=== PATIENT | female | born 1945 | race Caucasian/White ===

== ENCOUNTER 2018-06-23 07:29 | Outpatient (CLI) | payer OTHER | END 2018-06-23 07:34 | disposition home or self-care (01) | LOC: TOM 07:29 | DX: K56.50 Intestinal adhesions [bands], unspecified as to partial versus complete obstruction (principal); Q41.9 Congenital absence, atresia and stenosis of small intestine, part unspecified; K56.600 Partial intestinal obstruction, unspecified as to cause ==

== ENCOUNTER 2023-08-25 09:33 | Emergency (ER) | payer OTHER ==
[~2023-08-25] VITALS: Ht 175.3 cm; Wt 77.1 kg
[2023-08-25] MEDS ORDERED: SIMVASTATIN5 MG PO (10:21)
[2023-08-25] MEDS ORDERED: SYNTHROID75 MCG PO (10:21)
[2023-08-25] MEDS ORDERED: NORVASC2.5 M1 PO (10:21)
[2023-08-25] MEDS ORDERED: DOLOGEN CAPLET1 EACH PO (12:48)
== END 2023-08-25 13:53 | disposition home or self-care (01) ==
LOC: ER 09:33
DX: S80.02XA Contusion of left knee, initial encounter (principal); S80.01XA Contusion of right knee, initial encounter; W18.30XA Fall on same level, unspecified, initial encounter; Y93.9 Activity, unspecified; Y92.012 Bathroom of single-family (private) house as the place of occurrence of the external cause; Y99.9 Unspecified external cause status
CPT/HCPCS: 71110; 73560; 96372; 99284; J2360